=== PATIENT | female | born 1940 | race Caucasian/White ===

== ENCOUNTER 2019-11-02 09:56 | Emergency (ER) | payer MEDICARE ==
[~2019-11-02] VITALS: Ht 157.5 cm; Wt 94.9 kg
[2019-11-02] MEDS ORDERED: SODIUM CHLORIDE 0.9% 500ML 500 ML IV STA (10:06)
[2019-11-02] MEDS ORDERED: ONDANSETRON HCL INJ 2MG/ML 2ML 2 MG/ML VIAL IV ONE (10:15)
[2019-11-02] MEDS ORDERED: KETOROLAC TROMETHAMINE 30 MG/ML VIAL IV ONE (10:15)
[2019-11-02] MEDS ORDERED: ACETAMINOPHEN 325 MG TAB PO ONE (10:15)
[2019-11-02] MEDS ORDERED: ACETAMINOPHEN 325 MG TAB ONE (10:37)
[2019-11-02] MEDS ORDERED: SODIUM CHLORIDE 0.9% 500ML 500 ML ONE (10:38)
--- NOTE | 2019-11-02 11:27 | Diagnostic Imaging Report ---
EXAM: CT Chest WITHOUT intravenous contrast 11/02/2019 10:45 AM INDICATION: Trauma COMPARISON: None TECHNIQUE: Chest was scanned utilizing a multidetector helical scanner from the lung apex through the level of the adrenal glands without administration of IV contrast. Coronal and sagittal reformations were obtained. Routine protocol was performed. IV CONTRAST: None RADIATION DOSE: Total DLP: 783 mGy*cm. Dose modulation, iterative reconstruction, and/or weight based adjustment of the mA/kV was utilized to reduce the radiation dose to as low as reasonably achievable. COMPLICATIONS: None FINDINGS: LINES/ TUBES: None. LUNGS AND AIRWAYS: The central airways are patent. No focal consolidation or pulmonary edema. Mild bibasilar dependent subsegmental atelectasis. PLEURA: The pleural spaces are clear. HEART AND MEDIASTINUM: Heterogeneous left thyroid mass measures at least 3.6 x 3.2 x 5.3 cm and extends inferiorly into the prevascular space of the mediastinum. No supraclavicular, axillary, mediastinal, or hilar lymphadenopathy. The heart is not enlarged. No pericardial effusion. Scattered atherosclerotic calcifications involve the coronary arteries, aorta, and proximal great vessels. UPPER ABDOMEN: Subcentimeter right and left hepatic cysts. No acute findings. BONES: No acute osseous injury. No suspicious lytic or blastic lesions. SOFT TISSUES: Unremarkable. IMPRESSION: No evidence of acute traumatic injury to the thorax. Heterogeneous 3.6 x 3.2 x 5.3 cm left thyroid mass extends inferiorly into the prevascular space of the mediastinum. Recommend dedicated thyroid ultrasound for further evaluation. Signed by: Tony Beltran MD on 11/02/2019 11:23 AM
[2019-11-02 12:06] VITALS: BP 144/71
--- OUTSIDE RECORDS SUMMARY | 2019-11-02 13:11 | XMS REPORT ---
Author Author [facility] Address Unknown Phone Unavailable Care Team Providers Care Flap Curer Name Role Phone Cooper NEWELL Unavailable Unavailable Payers Payer Name Policy Type Policy Number Effective Date Expiration Date Problems This patient has no known problems. Allergies, Adverse Reactions, Alerts Allergy Name Allergy Type Status Severity Reaction(s) Onset Date Inactive Date Treating Clinician Comments morphine DA Active MO 2015-11-14 00:00:00 Medications This patient has no known medications. Results Test Description Test Time Test Comments Text Results Atomic Results Result Comments CT CHEST W/O CONTRAST-HOPD 2019-11-02 11:17:00 [facility] [address] [address] Patient Name: MARCEL RAGLAND MR #: [id number] : 1940 Age/Sex: 78/F Req #: [id number] Adm Physician: Ordered by: HECTOR NEWELL MD Report #: [id number] Location: [facility] Room/Bed: Procedure: [id number] HOPD/CT CHEST W/O CONTRAST-HOPD Exam Date: 11/02/19 Exam Time: 1045 REPORT STATUS: Signed EXAM: CT Chest WITHOUT intravenous contrast 11/02/2019 10:45 AM INDICATION: Trauma COMPARISON: None TECHNIQUE: Chest was scanned utilizing a multidetector helical scanner from the lung apex through the level of the adrenal glands without administration of IV contrast. Coronal and sagittal reformations were obtained. Routine protocol was performed. IV CONTRAST: None RADIATION DOSE: Total DLP: 783 mGy*cm. Dose modulation, iterative reconstruction, and/or weight based adjustment of the mA/kV was utilized to reduce the radiation dose to as low as reasonably achievable. COMPLICATIONS: None FINDINGS: LINES/ TUBES: None. LUNGS AND AIRWAYS: The central airways are patent. No focal consolidation or pulmonary edema. Mild bibasilar dependent subsegmental atelectasis. PLEURA: The pleural spaces are clear. HEART AND MEDIASTINUM: Heterogeneous left thyroid mass measures at least 3.6 x 3.2 x 5.3 cm and extends inferiorly into the prevascular space of the mediastinum. No supraclavicular, axillary, me diastinal, or hilar lymphadenopathy. The heart is not enlarged. No pericardial effusion. Scattered atherosclerotic calcifications involve the coronary arteries, aorta, and proximal great vessels. UPPER ABDOMEN: Subcentimeter right and left hepatic cysts. No acute findings. BONES: No acute osseous injury. No suspicious lytic or blastic lesions. SOFT TISSUES: Unremarkable. IMPRESSION: No evidence of acute traumatic injury to the thorax. Heterogeneous 3.6 x 3.2 x 5.3 cm left thyroid mass extends inferiorly into the prevascular space of the mediastinum. Recommend dedicated thyroid ultrasound for further evaluation. Signed by: Paulino Gray MD on 11/02/2019 11:23 AM Dictated By: PAULINO GRAY MD [id number] Transcribed By: PATTI on 11/02/19 1123 COPY TO: HECTOR NEWELL MD
== END 2019-11-02 12:00 | disposition home or self-care (01) ==
LOC: FSED 09:56
DX: S20.212A Contusion of left front wall of thorax, initial encounter (principal); S23.41XA Sprain of ribs, initial encounter; W01.0XXA Fall on same level from slipping, tripping and stumbling without subsequent striking against object, initial encounter; Y92.008 Other place in unspecified non-institutional (private) residence as the place of occurrence of the external cause; I10 Essential (primary) hypertension; E78.5 Hyperlipidemia, unspecified; G98.8 Other disorders of nervous system; Z85.841 Personal history of malignant neoplasm of brain
CPT/HCPCS: 71250; 80053; 82553; 84484; 85025; 93005; 96374; 96375; 99284; J1885; J2405; J7040

== ENCOUNTER 2025-04-22 08:36 | Inpatient (IN) | payer MEDICARE ==
[2025-04-22] VITALS (10 sets, daily range): BP systolic 141–200; BP diastolic 45–69; PULSE 49–62; RESP 17–19; TEMP 97.2–97.9; O2SAT 96–100
[~2025-04-22] VITALS: Ht 157.5 cm; Wt 93.9 kg
[~2025-04-22 08:36] MED LIST: AMLODIPINE BESYL5 MG PO; ASPIRIN EC81 MG PO; ATENOLOL50 MG PO; BENICAR40 MG; CALCIUM CARBON500 MG PO; DILANTIN100 MG PO; FISH OIL 1,0001 EAC6; FLAXSEED OIL1000 MG; HYDROCHLOROTHIA25 MG; MONTELUKAST SOD10 MG PO; OMEPRAZOLE40 MG PO; ONE DAILY WITH1 EACH; OSTEO BI-FLEX1 EAC2; SERTRALINE HCL100 MG PO; SIMVASTATIN10 MG PO; VITAMIN D350 MCG
[2025-04-22] MEDS ORDERED: SODIUM CHLORIDE FLUSH 10 ML SYR IV PRN (09:15)
[2025-04-22] MEDS: ACETAMINOPHEN 325 MG TAB PO ONE (10:25)
[2025-04-22] MEDS ORDERED: METHIMAZOLE5 MG PO (10:30)
[2025-04-22] MEDS ORDERED: OXYBUTYNIN CHLOR5 M1 PO (10:30)
[2025-04-22] MEDS ORDERED: METOPROLOL SUCC50 MG PO (10:30)
[2025-04-22] MEDS ORDERED: PANTOPRAZOLE SO40 MG PO (10:30)
[2025-04-22] MEDS ORDERED: ELIQUIS2.5 MG PO (10:30)
[2025-04-22 10:38] LABS: BASOPHILS % 0.8 % (0.0-1.0); EOSINOPHILS % 1.2 % (0.0-6.0); LYMPHOCYTES % 24.1 % (18.0-39.1); MONOCYTES % 5.7 % (4.4-11.3); NEUTROPHILS % 67.9 % (38.7-80.0); RED CELL DISTRIBUTION WIDTH 13.3 % (11.7-14.4)
[2025-04-22 10:59] LABS: INR 1.09
[2025-04-22 11:09] LABS: EST GLOMERULAR FILTRATION RATE 61.0 ML/MIN (>=60)
[2025-04-22] MEDS ORDERED: ONDANSETRON HCL INJ 2MG/ML 2ML 2 MG/ML VIAL IV PRN (13:00)
[2025-04-22] MEDS ORDERED: SODIUM CHLORIDE FLUSH 10 ML SYR INJ PRN (13:00)
[2025-04-22] MEDS: HYDRALAZINE HCL 20 MG/ML VIAL IV STA (13:59)
[2025-04-22] MEDS ORDERED: BENZONATATE 100 MG CAP PO PRN (16:00)
[2025-04-22] MEDS ORDERED: SIMETHICONE 80 MG CHEW PO PRN (16:00)
[2025-04-22] MEDS ORDERED: DOCUSATE SODIUM 100 MG CAP PO PRN (16:00)
[2025-04-22] MEDS ORDERED: ALBUTEROL/IPRATROPIUM 3 ML NEB NEB PRN (16:00)
[2025-04-22] MEDS ORDERED: POTASSIUM CHLORIDE 20 MEQ TAB CR PO PRN (16:00)
[2025-04-22] MEDS ORDERED: DIPHENHYDRAMINE HCL 25 MG CAP PO PRN (16:00)
[2025-04-22] MEDS ORDERED: DEXTROSE 50% SYRINGE 50 ML IV PRN (16:00)
[2025-04-22] MEDS: SODIUM CHLORIDE 0.9% 1000ML 1,000 ML IV SCH (16:45)
[2025-04-22] MEDS: LOSARTAN POTASSIUM 100 MG TAB PO SCH (17:24)
[2025-04-22] MEDS: ACETAMINOPHEN 325 MG TAB PO PRN (17:25)
[2025-04-22] MEDS: ENOXAPARIN SOD INJ 40 MG/0.4 ML SYR SC SCH (17:26)
[2025-04-22] MEDS ORDERED: AMIODARONE HCL200 MG PO (17:30)
[2025-04-22] MEDS: HYDRALAZINE HCL 20 MG/ML VIAL IV PRN (20:59)
[2025-04-22] MEDS ORDERED: MELATONIN 5 MG TABLET PO PRN (21:00)
[2025-04-22] MEDS ORDERED: PHENYTOIN SODIUM EXT REL 100 MG CAP PO SCH (22:00)
[2025-04-22] MEDS ORDERED: OLMESARTAN MEDOXOMIL 5 MG TABLET PO SCH (22:15)
[2025-04-22] MEDS ORDERED: IOPAMIDOL 370 MG/ML 100 ML INFUS..BTL INJ ONE (23:11)
[2025-04-22] MEDS: NIFEDIPINE CR 30 MG TAB PO SCH (23:16)
[2025-04-23] VITALS (12 sets, daily range): BP systolic 130–163; BP diastolic 43–95; PULSE 50–67; RESP 18–19; TEMP 97.8–98.4; O2SAT 96–100
[2025-04-23 05:53] LABS: BASOPHILS % 0.6 % (0.0-1.0); EOSINOPHILS % 1.1 % (0.0-6.0); LYMPHOCYTES % 23.6 % (18.0-39.1); MONOCYTES % 7.3 % (4.4-11.3); NEUTROPHILS % 67.1 % (38.7-80.0); RED CELL DISTRIBUTION WIDTH 13.5 % (11.7-14.4)
[2025-04-23 06:32] LABS: EST GLOMERULAR FILTRATION RATE 75.0 ML/MIN (>=60)
[2025-04-23 06:48] LABS: CHOL/HDL RATIO 2.4 (3.0-3.6); LDL CHOLESTEROL 61.0 MG/DL (60-130); PHOSPHORUS 3.8 MG/DL (2.3-4.7)
[2025-04-23] MEDS: OXYBUTYNIN CHLORIDE XL 5 MG TAB PO SCH (09:14)
[2025-04-23] MEDS: PANTOPRAZOLE SOD 40 MG TABEC PO SCH (09:14)
[2025-04-23] MEDS: ASPIRIN 81 MG ENTERIC COATED PO SCH (09:15)
[2025-04-23] MEDS: AMLODIPINE BESYLATE 5 MG TAB PO SCH (09:15)
[2025-04-23] MEDS ORDERED: GADOBENATE DIMEGLUMINE 1 ML IV ONE (13:09)
[2025-04-23] MEDS: POTASSIUM CHLORIDE 20 MEQ TAB CR PO ONE (16:28)
[2025-04-23] MEDS: KETOROLAC TROMETHAMINE 30 MG/ML VIAL IV SCH (16:29)
[2025-04-23] MEDS: SERTRALINE HCL 100 MG TAB PO SCH (21:25)
[2025-04-23] MEDS: SIMVASTATIN 20 MG TAB PO SCH (21:25)
[2025-04-24] VITALS (10 sets, daily range): BP systolic 153–178; BP diastolic 47–70; PULSE 60–93; RESP 18–20; TEMP 97.6–98.6; O2SAT 98–100
[2025-04-24 05:30] LABS: BASOPHILS % 0.6 % (0.0-1.0); EOSINOPHILS % 2.6 % (0.0-6.0); LYMPHOCYTES % 25.9 % (18.0-39.1); MONOCYTES % 7.9 % (4.4-11.3); NEUTROPHILS % 62.6 % (38.7-80.0); RED CELL DISTRIBUTION WIDTH 13.7 % (11.7-14.4)
[2025-04-24 06:06] LABS: EST GLOMERULAR FILTRATION RATE 68.0 ML/MIN (>=60)
[2025-04-25 03:30] VITALS: BP 165/58; PULSE 60; RESP 20; TEMP 97.8; O2SAT 99
[2025-04-25 06:44] VITALS: PULSE 75; RESP 20; O2SAT 95
[2025-04-25 08:30] VITALS: BP 185/66; PULSE 58; RESP 20; TEMP 98; O2SAT 97
[2025-04-25 08:49] VITALS: BP 185/66; PULSE 58; RESP 18; TEMP 98; O2SAT 100
[2025-04-25 16:00] VITALS: BP 155/60; PULSE 71; RESP 20; TEMP 97.8; O2SAT 99
[2025-04-25 18:20] VITALS: BP 171/61; PULSE 58; RESP 18; TEMP 97.5; O2SAT 100
== END 2025-04-25 17:10 | disposition home health service (06) | DRG 72 ==
LOC: ER 08:53 → ERHOLD 12:51 → MED/SURG2 15:00 → OBSVTOIN 16:31
PROVIDERS: ADMIT Internal Medicine; ATTEND Internal Medicine
DX: I67.2 Cerebral atherosclerosis (principal); G93.89 Other specified disorders of brain; S09.90XA Unspecified injury of head, initial encounter; I49.5 Sick sinus syndrome; R55 Syncope and collapse; I10 Essential (primary) hypertension; E03.9 Hypothyroidism, unspecified; E78.00 Pure hypercholesterolemia, unspecified; I48.0 Paroxysmal atrial fibrillation; D64.9 Anemia, unspecified; R51.9 Headache, unspecified; R00.1 Bradycardia, unspecified; K21.9 Gastro-esophageal reflux disease without esophagitis; F41.9 Anxiety disorder, unspecified; F32.A Depression, unspecified; E04.1 Nontoxic single thyroid nodule; W18.30XA Fall on same level, unspecified, initial encounter; M54.50 Low back pain, unspecified; Z79.01 Long term (current) use of anticoagulants; Z79.82 Long term (current) use of aspirin; Z90.710 Acquired absence of both cervix and uterus; Z86.011 Personal history of benign neoplasm of the brain; Z88.5 Allergy status to narcotic agent; Z82.49 Family history of ischemic heart disease and other diseases of the circulatory system
CPT/HCPCS: 36415; 70450; 70496; 70553; 71045; 72125; 72141; 80048; 80053; 80061; 83036; 83735; 83880; 84100; 84443; 84484; 85025; 85610; 85730; 87086; 93005; 93306; 93880; 94760; 94799; 95812; 99284; J0360; J1650; J1885; J2470; J7030; Q9967